=== PATIENT | female | born 1965 | race Caucasian/White ===

== ENCOUNTER → 2017-07-17 | Outpatient (CLI) | payer MEDICARE ==
[~2017-07-17] MED LIST: ABILIFY5 MG PO; CIPRO500 MG PO; CRESTOR PO; HYDROCHLOROTHIAZIDE PO; IOPAMIDOL 300MG/ML 100 ML INFUS..BTL IV ONE; LASIX PO; LATUDA PO; LOSARTAN POTAS100 MG PO; NEURONTIN PO; NORCO 10-325 T1 EACH PO; SAVELLA 50 MG; TOPAMAX25 MG PO; [UNRECOGNIZED DRUG - OTHER]
[2017-07-17 08:23] LABS: BLOOD UREA NITROGEN 9 mg/dL (7-26); BUN/CREATININE RATIO 13 (6-25); CREATININE, SERUM 0.72 mg/dL (0.57-1.11); EST GLOMERULAR FILTRATION RATE > 60 ML/MIN (60-)
--- NOTE | 2017-07-17 19:54 | Diagnostic Imaging Report ---
PROCEDURE:INTRAVENOUS PYELOGRAM (IVP) COMPARISON:None. INDICATIONS:CALCULUS OF THE KIDNEY TECHNIQUE: After obtaining a manager security KUB, 100 were administered intravenously. Multiple frontal and bilateral oblique images of the abdomen and pelvis were obtained with and without compression. Post-void images were obtained. FINDING: Block Inspector KUB: Nonobstructive bowel gas pattern. 7 and 8 mm rounded radiopaque densities projecting over the lower aspect of the liver may represent gallstones. 7 mm radiopaque density projects over the inferior pole of the right renal shadow. No radiopaque densities project over the expected course of the ureters. Kidneys: Renal positions, contours and sizes are normal. Bilateral excretion of contrast. Left calyxes and renal pelvis are normal without dilation or filling defects. The right calyxes and renal pelvis are dilated, mild to moderate hydronephrosis. No filling defects are identified. Ureters: Left ureter shows normal caliber without irregularity or filling defect. There is dilation of the proximal right ureter, which tapers to a point at the proximal to midportion. The rest of the ureter shows no significant intraluminal contrast during most of the exam until the 60 minute post contrast image and the postvoid image Bladder: Unremarkable. No filling defects. No significant post contrast. CONCLUSION: 1. Findings suggest obstruction at the mid to distal right ureter, which may be secondary to a radiolucent ureteral calculus. 2. 7 mm nonobstructing calculus in the right kidney. Luis Jose M.D. Dictated by: Luis Jose M.D. on 07/17/2017 at 19:56 Electronically approved by: Luis Jose M.D. on 07/17/2017 at 19:56
== END ==
LOC: DX 07:49
PROVIDERS: ATTEND Urology
DX: N20.0 Calculus of kidney (principal)
CPT/HCPCS: 36415; 74400; 82565; 84520; Q9967